=== PATIENT | male | born 1965 | race Caucasian/White ===

== ENCOUNTER 2016-09-27 14:33 | Emergency (ER) | END 2016-09-27 16:15 | disposition left against medical advice (07) | DX: Z53.21 Procedure and treatment not carried out due to patient leaving prior to being seen by health care provider (principal) ==

== ENCOUNTER 2017-09-19 17:07 | Emergency (ER) | END 2017-09-19 18:55 | disposition left against medical advice (07) ==

== ENCOUNTER 2018-12-11 11:31 | Emergency (ER) | payer OTHER ==
[~2018-12-11] VITALS: Ht 180.3 cm; Wt 78.2 kg
[2018-12-11 11:40] VITALS: Ht 180.3 cm; Wt 78.2 kg
--- NOTE | 2018-12-11 13:12 | ERD ---
ER Documentation Chief Complaint Chief Complaint Chest pressure HPI The patient is a 53-year-old male, presenting to the ER because of multiple complaints, complains of intermittent chest discomfort lasting for 30 seconds for the last 2 weeks, denies any chest pain now, denies chest pain with vomiting/radiation/exertion/diaphoresis, dyspnea, abdominal pain, vomiting. He complains of frequent urination and bilateral lower extremity numbness intermittently for more than 6 months but has not seen a doctor yet. He smokes, denies drinking, on methadone due to history of heroin addiction. Medical/surgical history: None ROS All systems reviewed and are negative except as per history of present illness. Medications Home Meds Active Scripts Sulfamethoxazole/Trimethoprim* (Bactrim Ds* Tablet) 1 Each Tablet, 1 TAB PO BID, #14 TAB Prov:KEVIN WONG MD 12/11/18 Reported Medications Methadone Hcl* (Methadone Hcl*) 10 Mg/5 Ml Solution, 60 MG PO DAILY, ML 12/11/18 Allergies Allergies: Coded Allergies: No Known Allergy (Unverified , 12/11/18) Physical Exam Vitals Vital Signs Date Temp Pulse Resp B/P (MAP) Pulse Ox O2 O2 Flow FiO2 Time Delivery Rate 12/11/18 98.3 86 20 136/74 98 Room Air 16:47 (94) 12/11/18 Nasal 14:37 Cannula 12/11/18 97.3 68 18 148/70 97 11:40 (96) Physical Exam Const: No acute distress. Head: Atraumatic. Eyes: Normal Conjunctiva. ENT: Normal External Ears, Nose and Mouth. Neck: Full range of motion. No meningismus. Resp: Clear to auscultation bilaterally. Cardio: Regular rate and rhythm. Abd: Soft, non distended, normal bowel sounds, non tender. Skin: No petechiae or rashes. Back: No midline or flank tenderness. Ext: Bilateral foot with chronic skin discoloration, no vesicles/pustules, no calf tenderness Neur: Awake and alert. No focal deficit Psych: Normal Mood and Affect. Result Diagram: 12/11/18 1408 12/11/18 1408 Results 24 hrs Laboratory Tests Test 12/11/18 14:08 12/11/18 16:46 White Blood Count 4.5 10^3/ul Red Blood Count 5.31 10^6/ul Hemoglobin 14.7 g/dl Hematocrit 44.9 % Mean Corpuscular Volume 84.6 fl Mean Corpuscular Hemoglobin 27.7 pg Mean Corpuscular Hemoglobin Concent 32.7 g/dl Red Cell Distribution Width 15.0 % Platelet Count 78 10^3/UL Mean Platelet Volume 9.3 fl Immature Granulocytes % 0.200 % Neutrophils % 57.6 % Segmented Neutrophils % (Manual) 55 % Lymphocytes % 31.8 % Lymphocytes % (Manual) 34 % Reactive Lymphocytes % (Manual) 4 % Monocytes % 7.8 % Monocytes % (Manual) 4 % Eosinophils % 2.2 % Eosinophils % (Manual) 3 % Basophils % 0.4 % Nucleated Red Blood Cells % 0.0 /100WBC Immature Granulocytes # 0.010 10^3/ul Neutrophils # 2.6 10^3/ul Lymphocytes (Manual) 1.5 10^3/ul Lymphocytes # 1.4 10^3/ul Reactive Lymphocytes # 0.1 10^3/ul Monocytes # 0.4 10^3/ul Monocytes # (Manual) 0.1 10^3/ul Eosinophils # 0.1 10^3/ul Basophils # 0.0 10^3/ul Nucleated Red Blood Cells # 0.0 10^3/ul Anisocytosis 1+ Microcytosis 1+ Sodium Level 139 mmol/L Potassium Level 4.0 mmol/L Chloride Level 103 mmol/L Carbon Dioxide Level 25 mmol/L Anion Gap 11 Blood Urea Nitrogen 11 mg/dl Creatinine 0.65 mg/dl Est Glomerular Filtrat Rate mL/min > 60 mL/min Glucose Level 87 mg/dl Calcium Level 9.0 mg/dl Troponin I < 0.012 ng/ml Bedside Urine pH (LAB) 6.0 Bedside Urine Protein (LAB) Negative Bedside Urine Glucose (UA) Negative Bedside Urine Ketones (LAB) Negative Bedside Urine Blood Negative Bedside Urine Nitrite (LAB) Negative Bedside Urine Leukocyte Esterase (L 2+ Procedures/MDM [place] [address] Radiology Main Line: [phone] DIAGNOSTIC IMAGING REPORT Patient: ANA MERA : 1965 Age: 53 Sex: M MR #: [id number] DOS: 12/11/18 1352 Ordering MD: KEVIN WONG MD Location: E/R Room/Bed: PROCEDURE: XR Chest. CLINICAL INDICATION: chest pain TECHNIQUE: Single frontal view of the chest was obtained COMPARISON: CR PORTABLE CHEST 06/06/2007 FINDINGS: The heart and mediastinum are within normal limits. The lungs are clear. There is no pleural effusion or pneumothorax. RPTAT: AA IMPRESSION: No acute disease. .Kian Oliva MD, MD Date Time Electronically viewed and signed by .Kian Oliva MD, MD on 12/11/2018 14:42 .S/ CC: KEVIN WONG MD [id number] EKG: Read by emergency physician Rate/Rhythm: Normal Sinus Rhythm 71 beats/min QRS, ST, T-waves: No ST elevation, no T inversion Impression: Normal EKG MEDICAL MAKING DECISION: The patient is a 53-year-old male, presenting to the ER because of acute cystitis, intermittent chest pain of unclear etiology. I do not suspect acute ACS and he is stable for outpatient follow-up The differential diagnoses considered include but are not limited to acute coronary syndrome, acute myocardial infarction, pericarditis, pulmonary embolism, aortic dissection, pneumonia, pleural effusion, pneumothorax, GERD, chest wall pain, peripheral neuropathy. Departure Diagnosis: Primary Impression: Chest pressure Additional Impressions: UTI (urinary tract infection) Rash and nonspecific skin eruption Leukopenia Thrombocytopenia Condition: Good Comments He was discharged with Bactrim DS I discussed the findings with the patient. I advised the patient to follow-up with the primary physician/local machine precision engraver dr mandel in about 2-3 days, sooner if needed and return if any concern. Disclaimer: Inadvertent spelling and grammatical errors are likely due to E HR/dictation software use and do not reflect on the overall quality of patient care. Also, please note that the electronic time recorded on this note does not necessarily reflect the actual time of the patient encounter. KEVIN WONG MD Dec 11, 2018 13:12
[2018-12-11] MEDS ORDERED: METH10SO PO (15:03)
[2018-12-11] MEDS ORDERED: SULF1TAB31 PO (16:43)
[2018-12-11 16:47] VITALS: BP 136/74; PULSE 86; RESP 20
== END 2018-12-11 16:48 | disposition home or self-care (01) ==
LOC: E/R 11:31
DX: N39.0 Urinary tract infection, site not specified (principal); R21 Rash and other nonspecific skin eruption; D69.6 Thrombocytopenia, unspecified
CPT/HCPCS: 36415; 71045; 80048; 81003; 84484; 85025; 93005; Z7502

== ENCOUNTER 2019-01-24 14:14 | Emergency (ER) | payer SELFPAY ==
[~2019-01-24 14:14] MED LIST: METH10SO PO; SULF1TAB31 PO
== END 2019-01-24 15:36 | disposition left against medical advice (07) ==
LOC: E/R 14:14
DX: Z53.21 Procedure and treatment not carried out due to patient leaving prior to being seen by health care provider (principal)